=== PATIENT | female | born 1990 | race Caucasian/White ===

== ENCOUNTER 2018-10-14 08:19 | Inpatient (IN) | payer BC, OTHER ==
[~2018-10-14] VITALS: Ht 165.1 cm; Wt 110.5 kg
[2018-10-14] MEDS ORDERED: NORT50CA52 PO (09:23)
[2018-10-14] MEDS ORDERED: PROMETHEGAN PO (09:23)
[2018-10-14] MEDS ORDERED: ONDA4TAB13 SL (09:23)
--- NOTE | 2018-10-14 09:27 | NUR ---
PT AMBULATORY TO ROOM AND [employer] [facility] [employer]. ABLE TO PROVIDE URINE AND STOOL SAMPLE. PT STATES SHE HAS ABDOMINAL PAIN 5/10 IN EPIGASTRIC AREA WITH DIARRHEA AND NAUSEA. PT STATES PAIN BEGAN WEDNESDAY EVENING. NADN. DONOVAN. CALL LIGHT IN REACH. PT RESTING ON [facility].
[2018-10-14] MEDS ORDERED: SODIUM CHLORIDE FLUSH 10ML SYR IVF ONE (09:30)
[2018-10-14] MEDS ORDERED: FAMOTIDINE 20 MG/2 ML IVP ONE (09:30)
[2018-10-14] MEDS ORDERED: ONDANSETRON 2MG/ML, 2ML IVPush ONE (09:30)
[2018-10-14] MEDS ORDERED: SODIUM CHLORIDE 0.9% 1,000ML IVBOLUS ONE (09:30)
[2018-10-14 09:40] LABS: BASOPHILS # (AUTO) 0.07 x10^3/uL (0-0.1); BASOPHILS % (AUTO) 1 % (0-1); EOSINOPHILS # (AUTO) 0.09 x10^3/uL (0-0.4); EOSINOPHILS % (AUTO) 1 % (1-7); LYMPHOCYTES % (AUTO) 15 % (22-44); MD NO; MEAN CORPUSCULAR HEMOGLOBIN 28.2 pg (27.0-34.8); MEAN CORPUSCULAR HGB CONC 33.1 g/dL (32.4-35.8); MEAN CORPUSCULAR VOLUME 85.1 fL (80-100); MEAN PLATELET VOLUME 9.2 fL (7.4-10.4); MONOCYTES # (AUTO) 0.66 x10^3/uL (0.2-0.8); MONOCYTES % (AUTO) 4 % (2-9); NEUTROPHILS # (AUTO) 11.86 x10^3/uL (1.8-6.8); NEUTROPHILS % (AUTO) 79 % (42-75); PLATELET COUNT 216 x10^3/uL (130-400); RED BLOOD COUNT 5.27 x10^6/uL (3.82-5.3); RED CELL DISTRIBUTION WIDTH 13.1 % (9.6-15.2)
[2018-10-14] MEDS ORDERED: FAMOTIDINE 20 MG/2 ML ONE (09:42)
[2018-10-14] MEDS ORDERED: ONDANSETRON 2MG/ML, 2ML ONE (09:42)
[2018-10-14 09:47] LABS: ALANINE AMINOTRANSFERASE 30 U/L (12-78); ALBUMIN 2.9 g/dL (3.4-5.0); ANION GAP 9 mmol/L (5-15); CALCIUM 8.8 mg/dL (8.5-10.1); CHLORIDE 107 mmol/L (98-107); CREATININE 0.87 mg/dL (0.55-1.02)
[2018-10-14 09:52] LABS: ALKALINE PHOSPHATASE 92 U/L (45-117); BILIRUBIN,TOTAL 0.5 mg/dL (0.2-1.0); TOTAL PROTEIN 7.5 g/dL (6.4-8.2)
--- NOTE | 2018-10-14 09:55 | NUR ---
PT MEDICATED PER EMAR. IV STARTED. NADN. VSS. CALL LIGHT IN REACH. PT RESTING IN [facility].
[2018-10-14 10:06] LABS: MICROSCOPIC AUTO
[2018-10-14 10:08] LABS: CULTURE INDICATED? YES
[2018-10-14] MEDS ORDERED: CEFTRIAXONE PMX 1GM/50ML 50 ML IVPB ONE (10:30)
--- NOTE | 2018-10-14 10:32 | NUR ---
PT TAKEN TO CT IN STABLE CONDITION.
[2018-10-14] MEDS ORDERED: CEFTRIAXONE PMX 1GM/50ML 50 ML ONE (10:38)
[2018-10-14] MEDS ORDERED: OMNIPAQUE 350 MG/ML, 100ML BOTTLE ONE (10:44)
--- NOTE | 2018-10-14 10:49 | NUR ---
PT IN CT AT THIS TIME.
[2018-10-14 10:56] LABS: CLOSTRIDIUM DIFFICILE ANTIGEN NEGATIVE; CLOSTRIDIUM DIFFICILE TOXIN NEGATIVE (Negative)
--- NOTE | 2018-10-14 11:38 | NUR ---
PT MEDICATED PER BREE. ANNI. VSS. CALL LIGHT IN REACH. PT RESTING ON [facility].
--- NOTE | 2018-10-14 12:01 | NUR ---
PT AMBULATORY TO BATHROOM AT THIS TIME.
--- NOTE | 2018-10-14 12:31 | NUR ---
REPORT GIVEN TO MARYA SANDERS
[2018-10-14 13:00] VITALS: BP 120/81
[2018-10-14] MEDS ORDERED: FREM225S SQ (13:09)
[2018-10-14] MEDS ORDERED: RIZA10TA5 PO (13:12)
[2018-10-14] MEDS ORDERED: ETON1VAG VG (13:14)
[2018-10-14] MEDS ORDERED: DIPH25CA61 PO (13:15)
[2018-10-14] MEDS ORDERED: ONDANSETRON 2MG/ML, 2ML IVPush PRN (15:00)
[2018-10-14] MEDS ORDERED: ACETAMINOPHEN 325 MG TABLET PO PRN (15:00)
[2018-10-14] MEDS ORDERED: ONDANSETRON ODT 4 MG PO PRN (15:00)
[2018-10-14] MEDS: METRONIDAZOLE PMX 500MG/100ML 100 ML IV SCH ×2 (15:32→23:17)
[2018-10-14] MEDS: SODIUM CHLORIDE 0.9% 1,000 ML IV SCH (15:32)
[2018-10-14 19:37] LABS: CRYPTOSPORIDIUM ANTIGEN Negative (Negative)
[2018-10-14 20:05] VITALS: BP 122/90
[2018-10-14] MEDS ORDERED: NORTRIPTYLINE 25 MG CAPSULE PO SCH (21:00)
[2018-10-14] MEDS ORDERED: TEMAZEPAM 30 MG CAPSULE ONE (23:14)
[2018-10-14] MEDS ORDERED: TEMAZEPAM 30 MG CAPSULE PO PRN (23:30)
[2018-10-15 00:32] VITALS: BP 108/76
[2018-10-15] MEDS: SODIUM CHLORIDE 0.9% 1,000 ML IV SCH ×2 (01:53→12:15)
[2018-10-15 05:32] LABS: BASOPHILS # (AUTO) 0.04 x10^3/uL (0-0.1); BASOPHILS % (AUTO) 1 % (0-1); EOSINOPHILS % (AUTO) 3 % (1-7); LYMPHOCYTES # (AUTO) 2.76 x10^3/uL (1-3.4); LYMPHOCYTES % (AUTO) 34 % (22-44); MD NO; MEAN CORPUSCULAR HEMOGLOBIN 28.7 pg (27.0-34.8); MEAN CORPUSCULAR HGB CONC 33.1 g/dL (32.4-35.8); MEAN CORPUSCULAR VOLUME 86.9 fL (80-100); MEAN PLATELET VOLUME 9.4 fL (7.4-10.4); MONOCYTES # (AUTO) 0.57 x10^3/uL (0.2-0.8); MONOCYTES % (AUTO) 7 % (2-9); NEUTROPHILS # (AUTO) 4.62 x10^3/uL (1.8-6.8); NEUTROPHILS % (AUTO) 56 % (42-75); PLATELET COUNT 191 x10^3/uL (130-400); RED BLOOD COUNT 4.44 x10^6/uL (3.82-5.3); RED CELL DISTRIBUTION WIDTH 12.7 % (9.6-15.2)
[2018-10-15 05:38] LABS: CHLORIDE 112 mmol/L (98-107)
[2018-10-15 05:52] LABS: ALANINE AMINOTRANSFERASE 25 U/L (12-78); ALBUMIN 2.3 g/dL (3.4-5.0); ALKALINE PHOSPHATASE 70 U/L (45-117); ANION GAP 6 mmol/L (5-15); BILIRUBIN,TOTAL 0.6 mg/dL (0.2-1.0); CALCIUM 8.1 mg/dL (8.5-10.1); CREATININE 0.77 mg/dL (0.55-1.02); TOTAL PROTEIN 5.9 g/dL (6.4-8.2)
[2018-10-15] MEDS: METRONIDAZOLE PMX 500MG/100ML 100 ML IV SCH (06:42)
[2018-10-15 09:42] VITALS: BP 110/77
[2018-10-15] MEDS ORDERED: DIPHENHYDRAMINE 25 MG CAPSULE PO PRN (10:00)
[2018-10-15] MEDS ORDERED: CEFTRIAXONE PMX 2GM/50ML 50 ML IV SCH (11:30)
[2018-10-15 13:11] VITALS: BP 126/92
[2018-10-15] MEDS ORDERED: CIPROFLOXACIN 500 MG TABLET PO SCH (14:00)
[2018-10-15] MEDS ORDERED: metroNIDAZOLE 500 MG TABLET PO SCH (14:00)
[2018-10-15] MEDS ORDERED: METR500T PO (14:37)
[2018-10-15] MEDS ORDERED: CIPR500T87 PO (14:37)
[2018-10-15 16:13] VITALS: BP 108/68
== END 2018-10-15 17:08 | disposition home or self-care (01) | DRG 386 ==
LOC: ED 11:35 → EDIP 11:36 → ED 12:22 → 4NOR 12:54
PROVIDERS: ADMIT Internal Medicine; ATTEND Internal Medicine
DX: K50.80 Crohn's disease of both small and large intestine without complications (principal); N39.0 Urinary tract infection, site not specified; K52.89 Other specified noninfective gastroenteritis and colitis; E86.0 Dehydration; G43.909 Migraine, unspecified, not intractable, without status migrainosus; K21.9 Gastro-esophageal reflux disease without esophagitis
CPT/HCPCS: 36415; 84145; 87046; 87427; J3490; 74177; 80053; 81001; 83605; 83690; 84703; 85025; 87040; 87086; 87324; 87328; 87329; 89055; 96365; 96375; 99291; G0378; J0696; J2405; Q9967; J7030; Q0163